=== PATIENT | male | born 2005 | race Caucasian/White ===

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

== ENCOUNTER 2024-03-03 00:37 | Emergency (ER) | payer BC ==
[2024-03-03 00:58] VITALS: TEMP 99.1
--- NOTE | 2024-03-03 01:10 | ERPHSYRPT ---
- History of Present Illness Source: patient Exam Limitations: no limitations Patient Subjective Stated Complaint: per pt's s/o, pt got home from work and began stumbling and saying that he couldnt walk straight. said he almost passed out a few times. Triage Nursing Assessment: pt alert and oriented, answers questions approp. pt to room per wheelchair and transfers to stretcher with assist of 1. pt answers questions with slight delay. pupils equal and reactive. pt moves all exremities without difficulty. Physician History: Patient had a presyncopal episode. He says he got lightheaded and felt like he was going to pass out. This helped but multiple times before. He says it happens 2 or 3 times a week. This time is little bit worse. He did not lose consciousness. He had no chest pain. He said it for started when he was in high school and it seems to be getting a little bit worse. It is usually after he is tired or fatigued. He has not had it evaluated. This time he said it happened "faster than usual". He did not have any palpitations. He had no chest pain. He had no focal neurological deficits. Allergies/Adverse Reactions: No Known Drug Allergies Allergy (Verified 03/03/24 00:58) Home Medications: No Reportable Medications [No Reported Medications] 03/03/24 [History] Hx Tetanus, Diphtheria Vaccination/Date Given: Yes Hx Influenza Vaccination/Date Given: No Hx Pneumococcal Vaccination/Date Given: No Immunizations Up to Date: Yes Travel Risk - International Travel Have you traveled outside of the country in past 3 weeks: No - Emerging Infectious Disease Are you exhibiting symptoms associated with any current EIDs: No - Past Medical History Pertinent Past Medical History: No Other Medical History: hypoglycemia - Past Surgical History Past Surgical History: No - Social History Smoking Status: Never smoker Exposure to second hand smoke: Yes Drug Use: none Patient Lives Alone: No - Social Determinants of Health Do you have any problems with any of the following?: No known problems In the past 12 months,have you had to go without utilities?: No Transportation Issues: No Has anyone in your support network made you feel unsafe?: No Have you or anyone in your house had to go without enough: No - Review of Systems Constitutional: No Symptoms Eyes: No Symptoms Ears, Nose, & Throat: Throat Swelling Genitourinary Symptoms: No Symptoms Musculoskeletal: No Symptoms All Other Systems: Reviewed and Negative Physical Exam - Nursing Vital Signs Nursing Vital Signs: Initial Vital Signs Temperature 99.1 F 03/03/24 00:42 Pulse Rate 88 03/03/24 00:42 Respiratory Rate 16 03/03/24 00:42 Blood Pressure 158/90 03/03/24 00:42 O2 Sat by Pulse Oximetry 99 03/03/24 00:42 Pain Scale Pain Intensity 0 - Toano Coma Scale Best Eye Response (Toano): (4) open spontaneously Best Verbal Response (Arelis): (5) oriented Best Motor Response (Arelis): (6) obeys commands [place] Total: 15 - Physical Exam General Appearance: no apparent distress Ears, Nose, Throat Exam: normal ENT inspection, TMs normal, pharynx normal Neck Exam: normal inspection Respiratory: normal breath sounds Cardiovascular: regular rate/rhythm, normal heart sounds Mental Status: alert, oriented x 3 silk screener Exam: normal hearing, normal speech, PERRL Coordination/Gait: normal finger to nose, normal gait Motor/Sensory: no motor deficit, no sensory deficit Skin Exam: normal color, warm SpO2: 99 - Course EKG Interpreted by Me: RATE, Sinus Rhythm, NORMAL AXIS, NORMAL ST-T Rhythm Strip: Rate Ordered Tests: Active Orders 24 hr Category Date Time Status EKG-ER Only STAT Care 03/03/24 01:04 Active BMP Stat Lab 03/03/24 01:04 Ordered CBC W DIFF Stat Lab 03/03/24 01:04 Ordered MAG [MAGNESIUM] Stat Lab 03/03/24 01:04 Ordered POCT GLUCOSE Stat Lab 03/03/24 00:41 Completed Lab/Rad Data: Laboratory Results 03/03/24 Range/Units 00:41 POC Glucometer 86 (74 to 106) mg/dL - Progress Progress: improved Progress Note: Patient was stable throughout stay. His EKG looked good. This has been going on a while. Is not new. I think that he is stable. I want a check his electrolytes and magnesium and make sure those look good. His EKG showed no acute changes. He needs to follow-up with his primary care doctor and get this evaluated. On the differential was hypoglycemia, arrhythmia, vasovagal episode. I believe that this is possibly vasovagal but I think that he should have the arrhythmias looked at. 03/03/24 01:07 Medical Desision Making - Independent Historian Additional History obtained from: Spouse - Social Determinants of Health Pt's dx & treatment plan are significantly limited by SDOH: limited education - Diagnostic Testing Diagnostic test were ordered, analyzed, and reviewed by me: Yes - Risk of complications Minimal Risk: Minimal risk of morbidity - Departure Departure Disposition: Home Clinical Impression: Near syncope Condition: Stable Critical Care Time: No Instructions: Syncope (Fainting) (DC)
[2024-03-03 01:15] LABS: BASOPHIL % 0.6 % (0.2-1.2); Basophil (Absolute #) 0.05 x10^3/uL (0.01-0.08); Eosinophil % 2.5 % (0.8-7.0); Eosinophil (Absolute #) 0.22 x10^3/uL (0.04-0.54); Hematocrit 42.8 % (40.1-51.0); Hemoglobin 14.5 g/dL (13.7-17.5); IMMATURE GRAN # 0.02 x10^3u/L (0.001-0.031); IMMATURE GRAN % 0.2 % (0.001-0.429); Lymphocyte (Absolute #) 2.88 x10^3/uL (1.32-3.57); Lymphocytes % 32.5 % (21.8-53.1); Mean Cell Volume 85.4 fL (79.0-92.2); Mean Corpuscular Hemoglobin 28.9 pg (25.7-32.2); Mean Corpuscular Hgb Concent. 33.9 g/dL (32.3-36.5); Mean Platelet Volume 9.8 fL (9.4-12.4); Monocyte (Absolute #) 0.79 x10^3/uL (0.30-0.82); Monocytes % 8.9 % (5.3-12.2); Neutrophil % 55.3 % (34.0-67.9); Platelet Count 328 x10^3/uL (163-337); Red Blood Count 5.01 x10^6/uL (4.63-6.08); Red Cell Distribution Width 11.8 % (11.6-14.4); White Blood Count 8.9 x10^3/uL (4.23-9.07)
[2024-03-03 01:28] LABS: ANION GAP 15.5 MEQ/L (5-15); Calcium 9.7 mg/dL (8.4-10.2); Creatinine 1 1.38 mg/dL (0.66-1.25); EST GLOMERULAR FILTRATION RATE 75.6 ML/MIN; MAGNESIUM 2.3 mg/dL (1.6-2.3)
[2024-03-03 02:56] VITALS: BP 109/66; PULSE 74; RESP 16; O2SAT 98
== END 2024-03-03 02:55 | disposition home or self-care (01) ==
LOC: ED 00:37
DX: R55 Syncope and collapse (principal)
CPT/HCPCS: 36415; 80048; 82947; 83735; 85025; 93005; 99283

== ENCOUNTER 2024-04-11 20:17 | Emergency (ER) | payer BC ==
[2024-04-11] MEDS ORDERED: Adacel Vial IM ONE (20:29)
[2024-04-11 20:30] VITALS: TEMP 99
[2024-04-11] MEDS: Adacel Vial IM ONE (20:30)
[2024-04-11 20:46] VITALS: BP 149/90; PULSE 81; RESP 16; O2SAT 97
--- NOTE | 2024-04-11 20:50 | ERPHSYRPT ---
- History of Present Illness Time Seen by Provider: 04/11/24 20:21 Source: patient Exam Limitations: no limitations Patient Subjective Stated Complaint: c/o ring finger injury Triage Nursing Assessment: patient brought to ED by father with c/o finger injury. patient has 1cm x 0.5cm finger laceration. patient rates pain 2/10. patient states he was cleaning equipment at work and stated, "I was banging this piece on the trash can and it slipped and this happened." Patient is slightly hypertensive, gait steady, pulses normal, skin w/n/d, patient doesn't appear to be in any distress at this time. Physician History: 18 years old right-handed dominant presented in the ER with a laceration to right fourth digit pulp while he was cleaning a piece of equipment at work when it accidentally slipped and got a superficial flap laceration. There was bleeding initially but stopped with applying pressure. Complaining of minimal pain with palpation. 0.5 cm flap laceration right fourth finger pulp, partially attached. Minimal oozing. No injury to the nail. Intact distal neurovascular. Intact range of motion at metacarpophalangeal joint proximal and distally. I do not think patient has such a superficial skin lesion that can be sutured but recommended Dermabond with Steri-Strips. I have applied Dermabond with Steri-Strip and dressing applied. Laceration care discussed along with signs symptoms of worsening needing return to ER which he seems understanding. Stable for discharge. Allergies/Adverse Reactions: No Known Drug Allergies Allergy (Verified 04/11/24 20:31) Home Medications: No Reportable Medications [No Reported Medications] 03/03/24 [History] Hx Tetanus, Diphtheria Vaccination/Date Given: No (unknown) Hx Influenza Vaccination/Date Given: No Hx Pneumococcal Vaccination/Date Given: No Travel Risk - International Travel Have you traveled outside of the country in past 3 weeks: No - Emerging Infectious Disease Are you exhibiting symptoms associated with any current EIDs: No - Review of Systems Constitutional: No Symptoms Respiratory: No Symptoms Cardiac: No Symptoms Musculoskeletal: Injury Skin: Skin Lesions Neurological: No Symptoms - Past Medical History Pertinent Past Medical History: Yes Endocrine Medical History: Hypoglycemia Other Medical History: hypoglycemia - Past Surgical History Past Surgical History: No - Social History Smoking Status: Never smoker Exposure to second hand smoke: Yes Drug Use: none Patient Lives Alone: No - Social Determinants of Health Will the patient participate in the screening: Declined to provide In the past 12 months,have you had to go without utilities?: No Transportation Issues: No Has anyone in your support network made you feel unsafe?: No Have you or anyone in your house had to go without enough: No - Nursing Vital Signs Nursing Vital Signs: Initial Vital Signs Temperature 99 F 04/11/24 20:20 Pulse Rate 88 04/11/24 20:20 Respiratory Rate 18 04/11/24 20:20 Blood Pressure 166/100 04/11/24 20:20 O2 Sat by Pulse Oximetry 99 04/11/24 20:20 Pain Scale Pain Intensity 2 - Physical Exam General Appearance: no apparent distress Eye Exam: PERRL/EOMI Neck Exam: normal inspection, full range of motion Respiratory Exam: normal breath sounds, lungs clear Extremity Exam: normal range of motion, tenderness, other (Superficial skin flap laceration right hand fourth digit pulp) Neurologic Exam: alert, oriented x 3, cooperative Skin Exam: normal color SpO2 Interpretation: normal SpO2: 97 O2 Delivery: Room Air Procedures - Laceration/Wound Repair Right Distal Volar Finger Time of Procedure: 20:48 Wound Location: Right, hand Wound Length (cm): 0.25 Wound's Depth, Shape: superficial, flap Wound Explored: clean Irrigated: Yes Hibiclens Prep: Yes Wound Repaired With: Steri-strips, Dermabond Ordered Tests: Active Orders 24 hr Category Date Time Status Wound Care STAT Care 04/11/24 20:26 Active Medication Summary Discontinued Medications Generic Name Dose Route Start Last Admin Trade Name Freq PRN Reason Stop Dose Admin Diphtheria/Tetanus/Acell Pertussis 0.5 ml 04/11/24 20:26 04/11/24 20:30 Tdap --Diph,Pertuss(Acell),Tet Vac/Pf 0.5 Ml Vial IM 04/11/24 20:27 0.5 ml .ONCE ONE Administration Diphtheria/Tetanus/Acell Pertussis Confirm 04/11/24 20:29 Tdap --Diph,Pertuss(Acell),Tet Vac/Pf 0.5 Ml Vial Administered 04/11/24 20:30 Dose 0.5 ml IM .STK-MED ONE - Progress Progress: improved Progress Note: 04/11/24 20:48 18 years old right-handed dominant presented in the ER with a laceration to right fourth digit pulp while he was cleaning a piece of equipment at work when it accidentally slipped and got a superficial flap laceration. There was bleeding initially but stopped with applying pressure. Complaining of minimal pain with palpation. 0.5 cm flap laceration right fourth finger pulp, partially attached. Minimal oozing. No injury to the nail. Intact distal neurovascular. Intact range of motion at metacarpophalangeal joint proximal and distally. I do not think patient has such a superficial skin lesion that can be sutured but recommended Dermabond with Steri-Strips. I have applied Dermabond with Steri-Strip and dressing applied. Laceration care discussed along with signs symptoms of worsening needing return to ER which he seems understanding. Stable for discharge. Counseled pt/family regarding: diagnosis, need for follow-up Medical Desision Making - Independent Historian Additional History obtained from: Father - Diagnostic Testing Diagnostic test were ordered, analyzed, and reviewed by me: No - Risk of complications The pt has a mod risk of morbidity or mortality based on: Need for minor surgi fanny intervention in patient with know risk factors - Departure Departure Disposition: Home Clinical Impression: Finger laceration Condition: Stable Critical Care Time: No Referrals: DOCTOR,NO FAMILY [Primary Care Provider] - Follow up with PCP 1 day Instructions: Laceration Repair With Glue ED Additional Instructions: Keep it clean and dry. Tylenol/ibuprofen as needed. Follow-up with primary care for reevaluation. Return to ER for increasing pain swelling redness discharge etc.
== END 2024-04-11 20:55 | disposition home or self-care (01) ==
LOC: ED 20:17
DX: S61.214A Laceration without foreign body of right ring finger without damage to nail, initial encounter (principal)
CPT/HCPCS: 90471; 90715; 99282; 99283